=== PATIENT | male | born 2005 | race Caucasian/White ===

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

== ENCOUNTER → 2025-07-11 13:36 | Outpatient (BNVA) | payer MEDICAID, SELFPAY | PROVIDERS: PCP Family Medicine; Visit Provider Nurse Practitioner | DX: R05.9 Cough, unspecified (principal) | CPT/HCPCS: 87426 ==